=== PATIENT | male | born 1960 | race Caucasian/White ===

== ENCOUNTER 2019-09-04 14:16 | Emergency (ER) | payer OTHER ==
[~2019-09-04] VITALS: Ht 177.8 cm; Wt 83.9 kg
[2019-09-04] MEDS ORDERED: LIPITOR20 MG PO (14:22)
[2019-09-04] MEDS ORDERED: NORVASC 2.5 MG2.5 M1 PO (14:22)
[2019-09-04 14:47] VITALS: BP 120/70
== END 2019-09-04 14:48 | disposition home or self-care (01) ==
LOC: M.ERS 14:16
DX: S61.531A Puncture wound without foreign body of right wrist, initial encounter (principal); I10 Essential (primary) hypertension; X78.8XXA Intentional self-harm by other sharp object, initial encounter; Y93.89 Activity, other specified; Y92.89 Other specified places as the place of occurrence of the external cause; Y99.8 Other external cause status